=== PATIENT | female | born 1985 | race Caucasian/White ===

== ENCOUNTER 2016-11-15 16:28 | Emergency (ER) | payer MEDICARE ==
[~2016-11-15 16:28] MED LIST: BENTYL20 MG PO; DILANTIN100 MG PO; DITROPAN 5 MG TA5 MG PO; IBUPROFEN600 MG PO; MAALOX PLUS 3030 ML PO; MIRALAX17 GM PO; NEURONTIN 400400 MG PO; NEURONTIN300 MG PO; PHENERGAN 25 MG25 M1 PO; REMERON30 MG PO; ROBAXIN 750 MG750 MG PO; SEROQUEL50 MG PO; VISTARIL50 MG PO; VIVELLE-DOT1 EAC1 TOP; ZOLOFT50 MG PO; ZYPREXA5 MG PO
== END 2016-11-15 17:19 | disposition home or self-care (01) ==
LOC: ER1 16:28
DX: S60.211A Contusion of right wrist, initial encounter (principal); Z88.1 Allergy status to other antibiotic agents; Z88.2 Allergy status to sulfonamides; Z79.899 Other long term (current) drug therapy; F17.210 Nicotine dependence, cigarettes, uncomplicated; W22.8XXA Striking against or struck by other objects, initial encounter; Y92.009 Unspecified place in unspecified non-institutional (private) residence as the place of occurrence of the external cause
CPT/HCPCS: 29130; 73110; 73130; 99283

== ENCOUNTER 2016-12-26 13:53 | Inpatient (IN) | payer MEDICARE ==
[~2016-12-26] VITALS: Ht 152.4 cm; Wt 63.5 kg
[2016-12-26] MEDS ORDERED: PREMARIN0.625 MG PO (17:06)
[2016-12-26] MEDS ORDERED: SEROQUEL200 MG PO (17:07)
[2016-12-26] MEDS ORDERED: BACTRIM DS TAB1 EACH PO (17:09)
[2016-12-26] MEDS ORDERED: IBUPROFEN800 MG PO (17:10)
[2016-12-26] MEDS ORDERED: TOPICAINE30 GM TOP (17:12)
[2016-12-26] MEDS ORDERED: PERCOCET 10-321 EACH PO (17:13)
[2016-12-26] MEDS ORDERED: FLEXERIL 10 MG10 MG PO (17:14)
[2016-12-26 19:05] LABS: HEMOGLOBIN 13.6 gm/dl (12.3-15.3); RED BLOOD COUNT 4.44 M/UL (4.00-5.10); WHITE BLOOD COUNT 10.5 K/UL (4.5-11.0)
[2016-12-26 19:19] LABS: BUN/CREATININE RATIO 15 (0-10)
[2016-12-28 06:39] LABS: BUN/CREATININE RATIO 15 (0-10)
[2016-12-29 06:25] LABS: BUN/CREATININE RATIO 18 (0-10)
[2016-12-30 05:49] LABS: BUN/CREATININE RATIO 14 (0-10)
[2016-12-31] MEDS ORDERED: ZYVOX600 MG PO (11:58)
[2016-12-31] MEDS ORDERED: PERCOCET 5-3251 EACH PO (17:13)
== END 2016-12-31 13:30 | disposition home or self-care (01) | DRG 857 ==
LOC: M/S 13:53
PROVIDERS: Family Medicine; Podiatrist Foot & Ankle Surgery; ADMIT Internal Medicine Infectious Disease
PROC: 02HV33Z Insertion of Infusion Device into Superior Vena Cava, Percutaneous Approach (ICD-10-PCS; 2016-12-28)
PROC: 0HDRXZZ Extraction of Toe Nail, External Approach (ICD-10-PCS; 2016-12-29)
PROC: 0JBQ0ZZ Excision of Right Foot Subcutaneous Tissue and Fascia, Open Approach (ICD-10-PCS; principal; 2016-12-29 07:45)
DX: T81.4XXA Infection following a procedure, initial encounter (principal); T81.31XA Disruption of external operation (surgical) wound, not elsewhere classified, initial encounter; L97.519 Non-pressure chronic ulcer of other part of right foot with unspecified severity; L08.9 Local infection of the skin and subcutaneous tissue, unspecified; B95.62 Methicillin resistant Staphylococcus aureus infection as the cause of diseases classified elsewhere; Y83.8 Other surgical procedures as the cause of abnormal reaction of the patient, or of later complication, without mention of misadventure at the time of the procedure; L60.0 Ingrowing nail; G89.18 Other acute postprocedural pain; L57.0 Actinic keratosis; K58.9 Irritable bowel syndrome, unspecified; F22 Delusional disorders; G89.4 Chronic pain syndrome; F31.9 Bipolar disorder, unspecified; F17.210 Nicotine dependence, cigarettes, uncomplicated; Z91.19 Patient's noncompliance with other medical treatment and regimen; Z87.898 Personal history of other specified conditions; Z79.1 Long term (current) use of non-steroidal anti-inflammatories (NSAID); Z79.890 Hormone replacement therapy; Z79.891 Long term (current) use of opiate analgesic; Z79.899 Other long term (current) drug therapy; Z88.3 Allergy status to other anti-infective agents; Z88.1 Allergy status to other antibiotic agents; Z88.2 Allergy status to sulfonamides; Z91.040 Latex allergy status; Z90.710 Acquired absence of both cervix and uterus; Z90.722 Acquired absence of ovaries, bilateral; Z90.79 Acquired absence of other genital organ(s); Z90.49 Acquired absence of other specified parts of digestive tract; Z98.890 Other specified postprocedural states; Z82.3 Family history of stroke; Z80.3 Family history of malignant neoplasm of breast; Z80.7 Family history of other malignant neoplasms of lymphoid, hematopoietic and related tissues; Z80.8 Family history of malignant neoplasm of other organs or systems; Z82.49 Family history of ischemic heart disease and other diseases of the circulatory system
CPT/HCPCS: 36415; 71010; 73630; 73718; 80048; 80053; 80202; 85025; 86140; 87070; 87075; 87077; 87186; 87205; C1751; J1885; J2250; J2270; J2405; J2550; J3370; J7050; J7070; J7120; Q0177; Q4133

== ENCOUNTER 2017-01-01 12:44 | Emergency (ER) | payer MEDICARE ==
[~2017-01-01 12:44] MED LIST changes: +BACTRIM DS TAB1 EACH PO; +FLEXERIL 10 MG10 MG PO; +IBUPROFEN800 MG PO; +PERCOCET 10-321 EACH PO; +PERCOCET 5-3251 EACH PO; +PREMARIN0.625 MG PO; +SEROQUEL200 MG PO; +TOPICAINE30 GM TOP; +ZYVOX600 MG PO
== END 2017-01-01 14:00 | disposition home or self-care (01) ==
LOC: ER1 12:44
DX: L02.416 Cutaneous abscess of left lower limb (principal); F17.210 Nicotine dependence, cigarettes, uncomplicated; Z88.1 Allergy status to other antibiotic agents; Z88.2 Allergy status to sulfonamides; Z91.040 Latex allergy status; Z90.49 Acquired absence of other specified parts of digestive tract
CPT/HCPCS: 99282

== ENCOUNTER 2017-01-06 08:46 | Emergency (ER) | payer MEDICARE ==
[2017-01-06 09:56] LABS: HEMOGLOBIN 13.8 gm/dl (12.3-15.3); RED BLOOD COUNT 4.42 M/UL (4.00-5.10); WHITE BLOOD COUNT 13.3 K/UL (4.5-11.0)
[2017-01-06 10:09] LABS: BUN/CREATININE RATIO 18 (0-10)
== END 2017-01-06 14:20 | disposition home or self-care (01) ==
LOC: ER1 08:46
PROVIDERS: Physician Assistant
DX: N39.0 Urinary tract infection, site not specified (principal); R31.9 Hematuria, unspecified; R10.2 Pelvic and perineal pain; F17.210 Nicotine dependence, cigarettes, uncomplicated; Z88.1 Allergy status to other antibiotic agents; Z91.040 Latex allergy status; Z90.49 Acquired absence of other specified parts of digestive tract
CPT/HCPCS: 36415; 80053; 81001; 83690; 85025; 87077; 87086; 87186; 87210; 96374; 96375; 99284; J0295; J1885; J1956; J2270; J2405; J7030; J7050

== ENCOUNTER 2020-10-03 17:10 | Emergency (ER) | payer OTHER ==
[~2020-10-03 17:10] MED LIST changes: +ALENDRONATE SOD10 MG PO; +ASPIRIN 325MG325 MG PO; +BACTROBAN NASAL1 G1 TOP; +BACTROBAN OINT22 GM EXT; +BENTYL 20MG TAB20 MG PO; +CATAPRES 0.1MG0.1 MG PO; +CLEOCIN HCL300 MG PO; +CLINDAMYCIN 1%-60 GM TP; +CLINDAMYCIN HC150 MG PO; +CLINDAMYCIN HC300 MG PO; +CYCLOBENZAPRINE10 MG PO; +DEPAKOTE500 MG PO; +DILAUDID 2 MG TA2 MG PO; +DOLOBID 500 MG500 MG PO; +DOXYCYCLINE HY100 M2 PO; +FOSAMAX70 MG PO; +GABAPENTIN800 MG PO; +IBU800 MG PO; +IMIPRAMINE PO; +INDERAL TAB 1010 MG PO; +KEFLEX CAP 500500 MG PO; +KEPPRA500 MG PO; +LAMICTAL5 MG PO; +LITE COAT ASPI325 MG PO; +MACROBID 100 M100 MG PO; +NAPROSYN500 MG PO; +PEPCID40 MG PO; +REXULTI PO; +SEROQUEL100 MG PO; +TOFRANIL10 MG PO; +VISTARIL 50 MG50 MG PO; +VITAMIN C250 MG PO; +VITAMIN D250 MCG PO; +VITAMIN D250000 UNIT PO; +ZANAFLEX4 M1 PO; +ZANAFLEX4 MG PO; +ZOFRAN4 MG PO; +ZOLOFT100 MG PO; +ZYPREXA10 MG PO
[2020-10-03 17:51] LABS: HEMOGLOBIN 12.9 gm/dl (12.3-15.3); RED BLOOD COUNT 4.29 M/UL (4.00-5.10); WHITE BLOOD COUNT 13.7 K/UL (4.5-11.0)
[2020-10-03 18:19] LABS: BUN/CREATININE RATIO 15 (0-10)
[2020-10-03] MEDS ORDERED: ZOFRAN ODT 4 MG4 MG SL (19:30)
== END 2020-10-03 19:50 | disposition home or self-care (01) ==
LOC: ER1 17:10
PROVIDERS: Student in an Organized Health Care Education/Training Program
DX: B34.9 Viral infection, unspecified (principal); G40.909 Epilepsy, unspecified, not intractable, without status epilepticus; F17.200 Nicotine dependence, unspecified, uncomplicated; G62.9 Polyneuropathy, unspecified; Z20.822 Contact with and (suspected) exposure to COVID-19; Z90.710 Acquired absence of both cervix and uterus; Z88.2 Allergy status to sulfonamides; Z88.1 Allergy status to other antibiotic agents; Z79.899 Other long term (current) drug therapy
CPT/HCPCS: 0240U; 71045; 80053; 81001; 82550; 82553; 83874; 83880; 84484; 84703; 85025; 93005; 96374; 99285; J2405

== ENCOUNTER 2020-10-19 10:18 | Emergency (ER) | payer OTHER ==
[~2020-10-19 10:18] MED LIST changes: +ZOFRAN ODT 4 MG4 MG SL
[2020-10-19] MEDS ORDERED: IBUPROFEN600 MG PO (12:37)
[2020-10-19] MEDS ORDERED: CLEOCIN40 GM TOP (12:37)
[2020-10-19] MEDS ORDERED: CLEOCIN HCL300 MG PO (12:37)
== END 2020-10-19 13:32 | disposition home or self-care (01) ==
LOC: ER1 10:18
DX: L73.2 Hidradenitis suppurativa (principal); I10 Essential (primary) hypertension; G62.9 Polyneuropathy, unspecified; F17.210 Nicotine dependence, cigarettes, uncomplicated; Z86.14 Personal history of Methicillin resistant Staphylococcus aureus infection; Z90.49 Acquired absence of other specified parts of digestive tract; Z90.710 Acquired absence of both cervix and uterus; Z88.2 Allergy status to sulfonamides; Z88.1 Allergy status to other antibiotic agents
CPT/HCPCS: 96372; 99283

== ENCOUNTER 2021-01-10 15:33 | Emergency (ER) | payer OTHER ==
[~2021-01-10 15:33] MED LIST changes: +CLEOCIN40 GM TOP
[2021-01-10 16:43] LABS: HEMOGLOBIN 15.2 gm/dl (12.3-15.3); RED BLOOD COUNT 5.12 M/UL (4.00-5.10); WHITE BLOOD COUNT 9.3 K/UL (4.5-11.0)
[2021-01-10 17:00] LABS: BUN/CREATININE RATIO 21 (0-10)
[2021-01-10] MEDS ORDERED: TORADOL 10 MG T10 MG PO (18:13)
[2021-01-10] MEDS ORDERED: MIRALAX17 GM PO (18:16)
== END 2021-01-10 18:34 | disposition home or self-care (01) ==
LOC: ER1 15:33
PROVIDERS: Physician Assistant Medical
DX: R10.9 Unspecified abdominal pain (principal); F17.210 Nicotine dependence, cigarettes, uncomplicated; Z87.442 Personal history of urinary calculi
CPT/HCPCS: 36415; 80053; 81001; 83690; 85025; 96374; 96375; 99284; J1885; J2270; J2405; J7030; Q9967

== ENCOUNTER 2021-06-12 14:40 | Emergency (ER) | payer OTHER ==
[~2021-06-12 14:40] MED LIST changes: +TORADOL 10 MG T10 MG PO
[2021-06-12] MEDS ORDERED: DOXYCYCLINE HY100 M2 PO (16:36)
[2021-06-12] MEDS ORDERED: PHENERGAN 25 MG25 M1 PO (16:36)
== END 2021-06-12 16:50 | disposition home or self-care (01) ==
LOC: ER1 14:40
DX: G43.909 Migraine, unspecified, not intractable, without status migrainosus (principal); L02.411 Cutaneous abscess of right axilla; L73.2 Hidradenitis suppurativa; Z90.49 Acquired absence of other specified parts of digestive tract; Z90.710 Acquired absence of both cervix and uterus; F17.210 Nicotine dependence, cigarettes, uncomplicated; Z88.2 Allergy status to sulfonamides; Z88.1 Allergy status to other antibiotic agents
CPT/HCPCS: 96372; 99283; J0595; J1200; J2550

== ENCOUNTER → 2021-07-02 | Emergency (ER) | payer OTHER | END | disposition home or self-care (01) | LOC: ER1 15:59 | DX: K59.00 Constipation, unspecified (principal); F17.200 Nicotine dependence, unspecified, uncomplicated; Z90.710 Acquired absence of both cervix and uterus; Z87.442 Personal history of urinary calculi | CPT/HCPCS: 81001; 99284 ==

== ENCOUNTER 2021-08-03 12:05 | Emergency (ER) | payer OTHER ==
[2021-08-03 13:28] LABS: HEMOGLOBIN 12.4 gm/dl (12.3-15.3); RED BLOOD COUNT 4.21 M/UL (4.00-5.10); WHITE BLOOD COUNT 15.6 K/UL (4.5-11.0)
[2021-08-03 13:51] LABS: BUN/CREATININE RATIO 18 (0-10)
[2021-08-03] MEDS ORDERED: ZOFRAN4 MG PO (14:27)
== END 2021-08-03 16:33 | disposition home or self-care (01) ==
LOC: ER1 12:05
PROVIDERS: Physician Assistant Medical
DX: E87.6 Hypokalemia (principal); R51.9 Headache, unspecified; R11.0 Nausea; I10 Essential (primary) hypertension; F17.210 Nicotine dependence, cigarettes, uncomplicated; Z88.2 Allergy status to sulfonamides; Z88.8 Allergy status to other drugs, medicaments and biological substances
CPT/HCPCS: 71045; 80053; 81001; 82436; 82533; 82550; 82553; 83735; 83874; 83935; 84100; 84133; 84300; 84439; 84443; 84484; 85025; 93005; 96374; 96375; 99284; J2270; J2405; J2550

== ENCOUNTER → 2021-08-04 | Outpatient (CLI) | payer OTHER ==
[2021-08-04 19:17] LABS: BUN/CREATININE RATIO 15 (0-10)
== END ==
LOC: LAB 18:21
DX: E87.6 Hypokalemia (principal)
CPT/HCPCS: 80053

== ENCOUNTER 2021-09-19 13:35 | Emergency (ER) | payer OTHER ==
[2021-09-19] MEDS ORDERED: ONDANSETRON ODT4 MG PO (15:59)
== END 2021-09-19 16:50 | disposition home or self-care (01) ==
LOC: ER1 13:35
DX: L02.411 Cutaneous abscess of right axilla (principal); F17.210 Nicotine dependence, cigarettes, uncomplicated; Z88.2 Allergy status to sulfonamides; Z88.8 Allergy status to other drugs, medicaments and biological substances
CPT/HCPCS: 87070; 87077; 87186; 87205; 99283

== ENCOUNTER 2022-02-16 22:39 | Emergency (ER) | payer BC ==
[~2022-02-16 22:39] MED LIST changes: +ONDANSETRON ODT4 MG PO
== END 2022-02-16 22:47 | disposition left against medical advice (07) ==
LOC: ER1 22:39
DX: Z53.21 Procedure and treatment not carried out due to patient leaving prior to being seen by health care provider (principal)